=== PATIENT | female | born 1990 | race African-American/Black ===

== ENCOUNTER 2023-01-03 17:01 | Emergency (ER) | payer OTHER ==
[~2023-01-03] VITALS: Ht 182.9 cm; Wt 127.0 kg
== END 2023-01-03 20:57 | disposition home or self-care (01) ==
LOC: ER 17:01
DX: S50.11XA Contusion of right forearm, initial encounter (principal); W05.2XXA Fall from non-moving motorized mobility scooter, initial encounter; Y93.I9 Activity, other involving external motion; Y92.413 State road as the place of occurrence of the external cause; Z88.0 Allergy status to penicillin